=== PATIENT | female | born 1945 | race Caucasian/White ===

== ENCOUNTER → 2018-08-31 | Outpatient (CLI) | payer MEDICARE ==
--- NOTE | 2018-08-31 13:12 | RADIOLOGY REPORT (SQ) ---
EXAM DESCRIPTION: BARIUM SWALLOW ESOPHAGUS COMPLETED DATE/TIME: 08/31/2018 10:04 am REASON FOR STUDY: DYSPHAGIA R13.10 DYSPHAGIA, UNSPECIFIED COMPARISON: None. TECHNIQUE: Under fluoroscopic guidance, patient ingested effervescent granules followed by thick and thin barium. Fluoroscopic spot images and routine radiographic images acquired and stored on PACS. 12 MM BARIUM TABLET GIVEN: The patient swallowed a 12 mm barium tab which passed easily through the e sophagus and into the stomach without delay. LIMITATIONS: None. FLUOROSCOPY TIME: FLUORO TIME: 1.5 minutes 7 images saved to PACS. FINDINGS: NEUROMUSCULAR COORDINATION OF SWALLOW: Normal. No aspiration. ESOPHAGEAL MOTILITY: Normal peristalsis. No esophageal spasm. ESOPHAGEAL MUCOSA: Normal mucosa without masses or ulceration. GASTRO-ESOPHAGEAL JUNCTION: Small hiatal hernia present. Prominent gastroesophageal reflux, with bar ium refluxing to the level of the clavicles. NON-GI TRACT STRUCTURES: No significant finding. OTHER: No other significant finding. IMPRESSION: SMALL HIATAL HERNIA WITH PROMINENT GASTROESOPHAGEAL REFLUX. OTHERWISE UNREMARKABLE STUD Y. RECOMMENDATION: None COMMENT: NONE Quality ID [id number]: Final reports for procedures using fluoroscopy that document radiation exposure gayatri evan, or exposure time and number of fluorographic images (if radiation exposure indices are not avail able) TECHNICAL DOCUMENTATION: JOB ID: [id number] [employer]- All Rights Reserved Reading location - IP/workstation name: [email or web address]
== END ==
LOC: RAD 09:10
PROVIDERS: ATTEND Otolaryngology
DX: K21.9 Gastro-esophageal reflux disease without esophagitis (principal); K44.9 Diaphragmatic hernia without obstruction or gangrene; R13.10 Dysphagia, unspecified
CPT/HCPCS: 74220

== ENCOUNTER → 2019-08-27 | Day surgery (SDC) | payer MEDICARE ==
[~2019-08-27] MED LIST: LIDOCAINE 2% JELLY 5 ML TUBE ONE
== END ==
LOC: END 07:58
PROVIDERS: ATTEND Internal Medicine Pulmonary Disease
DX: R69 Illness, unspecified (principal)

== ENCOUNTER 2020-05-05 07:17 | Day surgery (SDC) | payer MEDICARE ==
[2020-04-30 12:53] LABS: HEMATOCRIT 36.4 % (36.0-47.0); HEMOGLOBIN 12.5 g/dL (12.0-15.5); MEAN CORPUSCULAR HEMOGLOBIN 30.8 pg (27.0-33.4); MEAN CORPUSCULAR HGB CONC 34.3 g/dL (32.0-36.0); MEAN CORPUSCULAR VOLUME 90 fl (80-97); PLATELET COUNT 226 10^3/uL (150-450); RED BLOOD COUNT 4.05 10^6/uL (3.72-5.28); RED CELL DISTRIBUTION WIDTH 12.9 % (11.5-14.0); WHITE BLOOD COUNT 6.4 10^3/uL (4.0-10.5)
[2020-04-30 13:19] LABS: ANION GAP 6 (5-19); BLOOD UREA NITROGEN 11 mg/dL (7-20); CALCIUM 9.2 mg/dL (8.4-10.2); CARBON DIOXIDE 28 mmol/L (22-30); CHLORIDE 102 mmol/L (98-107); GLUCOSE 104 mg/dL (75-110); POTASSIUM 3.8 mmol/L (3.6-5.0)
--- NOTE | 2020-04-30 19:35 | EKG REPORT ---
SEVERITY:- NORMAL ECG - SINUS RHYTHM : Confirmed by: Irina Pappas MD 30-Apr-2020 19:34:54
[~2020-05-05 07:17] MED LIST changes: +CEFAZOLIN 1 GM/D5W RTU 1 GM/50 ML RTUPB IV ONE; +CEFAZOLIN 2 GM/D5W RTU 2 GM/50 ML RTUPB IV PRN; +FENTANYL CITRATE INJ/PF 100 MCG/2 ML AMPUL ONE; +LACTATED RINGERS 1000 ML IV PRN; +LIDOCAINE 0.5% INJ-PF (5 MG/ML) 50 ML SDV SUBCUT PRN; -LIDOCAINE 2% JELLY 5 ML TUBE ONE; +MIDAZOLAM 2 MG/2 ML INJ ONE
[2020-05-05] MEDS ORDERED: HYDROMORPHONE HCL INJ/PF 2 MG/ML AMPULE ONE (07:18)
[2020-05-05] MEDS ORDERED: PROPOFOL INJ 200 MG/20 ML VIAL IV ONE (07:18)
[2020-05-05] MEDS ORDERED: METHYLENE BLUE 50 MG/10 ML AMPULE ONE (09:17)
[2020-05-05] MEDS ORDERED: MORPHINE SULFATE 10 MG/ML INJ IV PRN ×2 (10:08→11:15)
[2020-05-05] MEDS ORDERED: MEPERIDINE HCL/PF INJ 25 MG/1 ML DISP.SYRIN IV PRN (10:08)
[2020-05-05] MEDS ORDERED: DIPHENHYDRAMINE HCL 50 MG/ML VIAL IV PRN (10:08)
[2020-05-05] MEDS ORDERED: FENTANYL CITRATE INJ/PF 100 MCG/2 ML AMPUL IV PRN ×3 (10:08)
[2020-05-05] MEDS ORDERED: ONDANSETRON HCL INJ/PF 4 MG/2 ML SDV IV PRN ×2 (10:08→11:15)
[2020-05-05] MEDS ORDERED: BUPIVACAINE INJ/PF LIPOSOME/PF 266 MG/20 ML SDV ONE (10:11)
[2020-05-05] MEDS ORDERED: POTASSI CL 20 MEQ/D5-1/2NS 1L 1,000 ML IV PRN (11:15)
[2020-05-05] MEDS ORDERED: FENTANYL CITRATE INJ/PF 100 MCG/2 ML AMPUL ONE (11:26)
[2020-05-05] MEDS ORDERED: (PENDING PHARMACY ID) (Benzonatate [Benzonatate] 200 MG) PO PRN (11:42)
[2020-05-05] MEDS ORDERED: ALBUTEROL SULFATE HFA (90 MCG/PUFF) 8 GM MDI (1 MDI/ER DISP) IH PRN (11:42)
[2020-05-05] MEDS ORDERED: [UNRECOGNIZED DRUG - REMARK] PO PRN (11:42)
--- NOTE | 2020-05-05 12:49 | Operative Report ---
Nonrecallable Operative Report DATE OF SURGERY: 05/05/20 PREOPERATIVE DIAGNOSIS: gerd, hiatal hernia POSTOPERATIVE DIAGNOSIS: gerd, hiatal hernia OPERATION: laparoscopic eliu fundoplication SURGEON: JONELLE CRANE ANESTHESIA: GA TISSUE REMOVED OR ALTERED: none COMPLICATIONS: none ESTIMATED BLOOD LOSS: 25cc. INTRAOPERATIVE FINDINGS: hiatal hernia PROCEDURE: Patient brought the operating room awake alert in stable condition placed in the table supine position just under general anesthesia intubated. Abdomen is prepped draped usual sterile fashion for the procedure. After appropriate timeout site verification procedure commenced. Veress needle was placed into the umbilicus and the abdomen was insufflated 6 L of CO2 gas. Infraumbilical incision was made with a 15 blade and a 10 mm port placed in the abdominal cavity intra-abdominal visualization revealed no evidence of Veress needle or trocar injury. 2 epigastric 5 mm ports were placed under direct vision a right and left upper quadrant 5 mm port then placed under direct vision. The stomach was visualized. We divided the short gastric vessels and the gastrocolic ligament from the incisura to the angle of Hiss using the LigaSure device. Once the stomach was completely freed up we identified the hiatus and the left slip of the shannan. We then took down the gastrohepatic omentum with LigaSure device to identify the right shannan. We then mobilized the distal esophagus approximately 6 cm into the abdominal cavity with blunt and sharp dissection. We then closed the shannan around the posterior portion of the esophagus after a 56 Bahamian bougie dilator was placed into the mouth with it tip of it in the stomach. The shannan was closed posteriorly with 2 [id number] placed 0 Surgidac sutures. The the fundus of the stomach was then wrapped posteriorly around the esophagus and fixed to itself anteriorly and the esophagus with 2 stitches of 0 Surgidac placed around a 56 [place]ian bougie dilator. This created a floppy Eliu wrap. The bougie dilator was removed the integrity of this sutures were inspected and noted to be intact approximately 3 sutures were placed to create approximately a 2 cm long floppy Eliu wrap. At this point hemostasis was obtained we then remove the pneumoperitoneum remove the ports closed the fascial defects of 10 mm or greater with 0 Vicryl in the fascia and then closed all skin incisions with intracuticular 4-0 Maxon Steri- Strips completed the procedure. Estimated blood loss was less than 20 cc sponge and needle counts were correct x2. This point patient was awakened in the operating extubated transferred recovery stable condition. No complications. JOE Olmstead was present for the entire procedure for help with wound retraction wound closure.
[2020-05-05] MEDS ORDERED: ALBUTEROL SULFATE HFA (90 MCG/PUFF) 200 PUFF/8.5 GM MDI IH PRN (14:12)
[2020-05-05] MEDS ORDERED: DIPHENHYDRAMINE HCL 25 MG CAPSULE PO PRN (14:17)
[2020-05-05] MEDS ORDERED: BENZONATATE 100 MG CAPSULE PO PRN (14:17)
[2020-05-05] MEDS ORDERED: DEXAMETHASONE SOD PHOSPHATE INJ 4 MG/1 ML VIAL ONE (14:39)
[2020-05-05] MEDS ORDERED: GLYCOPYRROLATE 1 MG/5 ML VIAL ONE (14:39)
[2020-05-05] MEDS ORDERED: NEOSTIGMINE METHYLSULFATE 10 MG/10 ML VIAL ONE (14:39)
[2020-05-05] MEDS ORDERED: ONDANSETRON HCL INJ/PF 4 MG/2 ML SDV ONE (14:39)
[2020-05-05] MEDS ORDERED: PHENYLEPHRINE HCL INJ/PF 10 MG/1 ML SDV ONE (14:39)
[2020-05-05] MEDS ORDERED: ROCURONIUM BROMIDE INJ 50 MG/5 ML VIAL IV ONE (14:39)
[2020-05-05] MEDS ORDERED: FLUTICASONE FUROATE PO SCH (18:00)
[2020-05-05] MEDS: FAMOTIDINE INJ/PF 20 MG/2 ML SDV IV SCH (21:21)
[2020-05-06 06:39] LABS: ABSOLUTE LYMPHOCYTES (AUTO) 1.2 10^3/uL (0.5-4.7); ABSOLUTE MONOCYTES (AUTO) 0.8 10^3/uL (0.1-1.4); ABSOLUTE NEUT (AUTO) 6.7 10^3/uL (1.7-8.2); BASOPHILS % (AUTO) 0.5 % (0-2); HEMATOCRIT 34.9 % (36.0-47.0); HEMOGLOBIN 12.2 g/dL (12.0-15.5); LYMPHOCYTES % (AUTO) 13.6 % (13-45); MEAN CORPUSCULAR HEMOGLOBIN 31.5 pg (27.0-33.4); MEAN CORPUSCULAR VOLUME 90 fl (80-97); MONOCYTES % (AUTO) 9.2 % (3-13); PLATELET COUNT 220 10^3/uL (150-450); RED BLOOD COUNT 3.88 10^6/uL (3.72-5.28); RED CELL DISTRIBUTION WIDTH 13.1 % (11.5-14.0); SEGMENTED NEUTROPHILS % (AUTO) 76.7 % (42-78); TOTAL CELLS COUNTED % (AUTO) 100 %; WHITE BLOOD COUNT 8.8 10^3/uL (4.0-10.5)
[2020-05-06 07:02] LABS: ANION GAP 6 (5-19); BLOOD UREA NITROGEN 10 mg/dL (7-20); CARBON DIOXIDE 25 mmol/L (22-30); CHLORIDE 100 mmol/L (98-107); GLUCOSE 150 mg/dL (75-110); POTASSIUM 4.5 mmol/L (3.6-5.0)
--- NOTE | 2020-05-06 09:07 | PDOC DISCHARGE SUMMARY ---
General - Admit/Disc Date/PCP Admission Date/Primary Care Provider: MIKE BUSTILLO Discharge Date: 05/06/20 - Discharge Diagnosis Final Diagnosis: gerd - Assessment Summary: Patient was admitted on 05/05/2020 for an elective laparoscopic Eliu fundoplication for gastroesophageal reflux disease. Patient underwent the procedure without complications. Postoperative day 1 she was doing well tolerating liquids and ready for discharge home. - Additional Information Resuscitation Status: Full Code Discharge Diet: Full Liquids Discharge Activity: Activity As Tolerated, No Lifting Over 10 Pounds, Other - Okay to shower Referrals: DASH TRUJILLO FNP [Primary Care Provider] - Home Medications: Albuterol Sulfate [Albuterol Sulfate Hfa] 2 puff PO BID PRN 04/30/20 Benzonatate 200 mg PO TID PRN 04/30/20 Diphenhydramine HCl [Allergy Medicine] 1 tab PO DAILY PRN 04/30/20 Fluticasone Furoate [Arnuity Ellipta] 2 cap PO BID 04/30/20 Levothyroxine Sodium [Synthroid 0.05 mg Tablet] 1 tab PO DAILY 04/30/20 Omeprazole 20 mg PO DAILY 04/30/20 Sodium Chloride [Saline Nasal [place]] 1 spray NAREB DAILY 04/30/20 History of Present Illiness History of Present Illness: MICHELLE EARLY is a 74 year old female Physical Exam Vital Signs: Temp Pulse Resp BP Pulse Ox 98.0 F 64 16 158/71 H 96 05/06/20 07:53 05/06/20 07:53 05/06/20 07:53 05/06/20 07:53 05/06/20 07:53 Intake & Output 05/05/20 05/06/20 05/07/20 06:59 06:59 06:59 Intake Total 2850 Output Total 10 Balance 2840 Weight 58.51 kg Results Laboratory Results: WBC 8.8 10^3/uL (4.0-10.5) 05/06/20 05:59 RBC 3.88 10^6/uL (3.72-5.28) 05/06/20 05:59 Hgb 12.2 g/dL (12.0-15.5) 05/06/20 05:59 Hct 34.9 % (36.0-47.0) L 05/06/20 05:59 MCV 90 fl (80-97) 05/06/20 05:59 MCH 31.5 pg (27.0-33.4) 05/06/20 05:59 MCHC 35.0 g/dL (32.0-36.0) 05/06/20 05:59 RDW 13.1 % (11.5-14.0) 05/06/20 05:59 Plt Count 220 10^3/uL (150-450) 05/06/20 05:59 Lymph % (Auto) 13.6 % (13-45) 05/06/20 05:59 [place] % (Auto) 9.2 % (3-13) 05/06/20 05:59 Eos % (Auto) 0.0 % (0-6) 05/06/20 05:59 Baso % (Auto) 0.5 % (0-2) 05/06/20 05:59 Absolute Neuts (auto) 6.7 10^3/uL (1.7-8.2) 05/06/20 05:59 Absolute Lymphs (auto) 1.2 10^3/uL (0.5-4.7) 05/06/20 05:59 Absolute Monos (auto) 0.8 10^3/uL (0.1-1.4) 05/06/20 05:59 Absolute Eos (auto) 0.0 10^3/uL (0.0-0.6) 05/06/20 05:59 Absolute Basos (auto) 0.0 10^3/uL (0.0-0.2) 05/06/20 05:59 Seg Neutrophils % 76.7 % (42-78) 05/06/20 05:59 Sodium 130.7 mmol/L (137-145) L 05/06/20 05:59 Potassium 4.5 mmol/L (3.6-5.0) 05/06/20 05:59 Chloride 100 mmol/L (98-107) 05/06/20 05:59 Carbon Dioxide 25 mmol/L (22-30) 05/06/20 05:59 Anion Gap 6 (5-19) 05/06/20 05:59 BUN 10 mg/dL (7-20) 05/06/20 05:59 Creatinine 0.65 mg/dL (0.52-1.25) 05/06/20 05:59 Est GFR ( Amer) > 60 (>60) 05/06/20 05:59 Est GFR (MDRD) Non-Af > 60 (>60) 05/06/20 05:59 Glucose 150 mg/dL (75-110) H 05/06/20 05:59 Calcium 9.0 mg/dL (8.4-10.2) 05/06/20 05:59 COVID-19 Source NASOPHARYNGEAL 04/30/20 12:30 COVID-19 (SUMMER) NOT DETECTED 04/30/20 12:30
[2020-05-06] MEDS ORDERED: KETOROLAC TROMETHAMINE INJ/PF 30 MG/1 ML SDV IV ONE (09:30)
[2020-05-06] MEDS ORDERED: SODIUM CHLORIDE NASAL SPRAY 44 ML NAREB SCH (10:00)
[2020-05-06] MEDS ORDERED: LEVOTHYROXINE SODIUM 0.05 MG TABLET PO SCH (10:00)
[2020-05-06] MEDS: FAMOTIDINE INJ/PF 20 MG/2 ML SDV IV SCH (10:00)
[2020-05-06 10:58] VITALS: BP 177/69
== END 2020-05-06 11:43 | disposition home or self-care (01) ==
LOC: OROUT 07:17 → 4S 12:13 → OROUT 05-06 11:43
PROVIDERS: ATTEND Surgery
DX: K21.9 Gastro-esophageal reflux disease without esophagitis (principal); J45.909 Unspecified asthma, uncomplicated; E03.9 Hypothyroidism, unspecified; Z85.828 Personal history of other malignant neoplasm of skin; Z79.899 Other long term (current) drug therapy; Z03.818 Encounter for observation for suspected exposure to other biological agents ruled out
CPT/HCPCS: 93005; 36415 ×2; 85025; 85027; 80048 ×2; 94799; 93010; 43280; U0003; J2250; A9270 ×2; J0690; J3490 ×2; J1100; J3010; J1885; J2270; J2710; J1170; J2370; J3480; J2405; J2704; S0028 ×2; C9290; C9803; 790; 87635; Q9968

== ENCOUNTER 2020-05-19 06:29 | Day surgery (SDC) | payer MEDICARE ==
[~2020-05-19 06:29] MED LIST changes: +BUPIVACAINE HCL 0.75% INJ/PF (7.5 MG/1 ML) 10 ML SDV OS PRN; -CEFAZOLIN 1 GM/D5W RTU 1 GM/50 ML RTUPB IV ONE; -CEFAZOLIN 2 GM/D5W RTU 2 GM/50 ML RTUPB IV PRN; -FENTANYL CITRATE INJ/PF 100 MCG/2 ML AMPUL ONE; -LACTATED RINGERS 1000 ML IV PRN; -LIDOCAINE 0.5% INJ-PF (5 MG/ML) 50 ML SDV SUBCUT PRN; +LIDOCAINE 4% INJ/PF (40 MG/ML) 5 ML AMPUL OS PRN; -MIDAZOLAM 2 MG/2 ML INJ ONE
[2020-05-19] MEDS: TROPICAMIDE 1% OPH SOLN 15 ML OS PRN ×4 (06:50→07:15)
[2020-05-19] MEDS: KETOROLAC TROMETHAMINE 0.45% 4 DROP/0.4 ML DROPERETTE OS PRN ×2 (06:50→06:55)
[2020-05-19] MEDS: BESIFLOXACIN HCL 0.6% OPH SUSP 5 ML BOTTLE OS PRN ×5 (06:50→07:57)
[2020-05-19] MEDS: TETRACAINE HCL 0.5% OPH SOLN 4 ML OS PRN ×3 (06:50→07:15)
[2020-05-19] MEDS: CYCLOPENTOLATE 0.2%/PHENYLEPHRINE 1% OPH SOLN 2 ML OS PRN ×4 (06:50→07:15)
[2020-05-19] MEDS ORDERED: MIDAZOLAM 2 MG/2 ML INJ ONE (07:16)
[2020-05-19] MEDS: LIDOCAINE 1% INJ-PF (10 MG/ML) 30 ML SDV ONE ×2 (07:40→07:47)
[2020-05-19] MEDS: CHONDR SU A NA/HYALUR INTRAOC KIT (SURGICARE) ONE ×2 (07:41→07:47)
[2020-05-19] MEDS: EPINEPHRINE INJ/PF 1 MG/1 ML AMPULE ONE ×2 (07:41→07:47)
[2020-05-19] MEDS: DORZOLAMIDE HCL 2%/TIMOLOL MALEAT 0.5% OPH SOLN 10 ML OS PRN ×2 (07:57)
--- NOTE | 2020-05-19 09:31 | Operative Report ---
Operative Report-[facility] Operative Report: DATE OF SURGERY: 05/19/2020 PREOPERATIVE DIAGNOSIS: CATARACT, LEFT EYE. POSTOPERATIVE DIAGNOSIS: CATARACT, LEFT EYE. PROCEDURE PERFORMED: PHACOEMULSIFICATION WITH POSTERIOR CHAMBER INTRAOCULAR LENS, LEFT EYE. Intraocular Lens Model : SN 60 WF 24.0 Total Phaco Time: 7.25 CDE SURGEON: JOSE ROSENBERG MD ANESTHESIA: TOPICAL WITH MAC. INDICATIONS FOR SURGERY: Difficultly driving at night PROCEDURE: The patient was brought to the Operating Room and placed on the operative table. Following tetracaine drops, topical anesthesia was administered. This consisted of instrument wipe pledgets soaked in a solution of 4% Xylocaine mixed with 0.75% Marcaine in a 1:2 ratio. A 2 x 1 cm pledget was placed in the superior fornix. A 1 x 1 cm pledget was placed in the inferior fornix. The eye was patched shut for 5 minutes. The patch was removed. The eye was sterilely prepped and draped in the usual manner. Lid speculum was placed in the eye. The pledgets were removed. 4-0 black silk sutures were placed around the superior and the inferior rectus muscles to be used as traction. A conjunctival peritomy was made at the 10 o'clock position. Hemostasis was obtained with bipolar cautery. A posterior limbal groove was created using a crescent knife and dissected anteriorly towards the cornea. A sharp point blade was used to create a paracentesis site at the 2 o'clock position. 0.2 cc non preserved Lidocaine was injected into the anterior chamber. A 2.4 mm keratome was used to enter the anterior chamber through the groove. Viscoelastic was injected into the anterior chamber. An anterior capsulotomy was performed using Utrata forceps in a capsulorrhexis fashion. Hydrodissection and hydrodelineation were performed. Phacoemulsification was performed in [id number] technique. Following this, the I/A unit was used to remove residual cortex. Viscoelastic was injected into the capsular bag. The Intraocular lens was placed in the capsular bag. The I/A unit was used to remove residual viscoelastic. The wound was seen to be watertight under high and low pressure, and no sutures were placed. The intraocular lens was well centered. The pressure was adjusted in the eye to normal pressure. The 4-0 black silk sutures and lid speculum were removed. The eye was shielded after Besivance,prednisolone, and Cosopt drops were placed. The patient tolerated the procedure well and was sent to the Recovery Room in good condition.
== END 2020-05-19 08:30 | disposition home or self-care (01) ==
LOC: SC 06:29
PROVIDERS: ATTEND Ophthalmology
DX: H25.813 Combined forms of age-related cataract, bilateral (principal); E03.9 Hypothyroidism, unspecified; Z79.899 Other long term (current) drug therapy; J45.909 Unspecified asthma, uncomplicated
CPT/HCPCS: 66984; V2632; J2250; J3490 ×5; A9270; J0171

== ENCOUNTER 2020-06-30 06:37 | Day surgery (SDC) | payer MEDICARE ==
[~2020-06-30 06:37] MED LIST changes: +BUPIVACAINE HCL 0.75% INJ/PF (7.5 MG/1 ML) 10 ML SDV OD PRN; -BUPIVACAINE HCL 0.75% INJ/PF (7.5 MG/1 ML) 10 ML SDV OS PRN; +KETOROLAC TROMETHAMINE 0.45% 4 DROP/0.4 ML DROPERETTE OD PRN; +LIDOCAINE 4% INJ/PF (40 MG/ML) 5 ML AMPUL OD PRN; -LIDOCAINE 4% INJ/PF (40 MG/ML) 5 ML AMPUL OS PRN
[2020-06-30] MEDS ORDERED: FENTANYL CITRATE INJ/PF 100 MCG/2 ML AMPUL ONE (06:53)
[2020-06-30] MEDS ORDERED: MIDAZOLAM 2 MG/2 ML INJ ONE (06:53)
[2020-06-30] MEDS: TROPICAMIDE 1% OPH SOLN 15 ML OD PRN ×3 (06:55→07:20)
[2020-06-30] MEDS: CYCLOPENTOLATE 0.2%/PHENYLEPHRINE 1% OPH SOLN 2 ML OD PRN ×3 (06:55→07:20)
[2020-06-30] MEDS: BESIFLOXACIN HCL 0.6% OPH SUSP 5 ML BOTTLE OD PRN ×4 (06:55→07:50)
[2020-06-30] MEDS: TETRACAINE HCL 0.5% OPH SOLN 4 ML OD PRN ×2 (06:55→07:22)
[2020-06-30] MEDS: CHONDR SU A NA/HYALUR INTRAOC KIT (SURGICARE) ONE ×2 (07:36→07:38)
[2020-06-30] MEDS: LIDOCAINE 1% INJ-PF (10 MG/ML) 30 ML SDV ONE ×2 (07:36→07:38)
[2020-06-30] MEDS: EPINEPHRINE INJ/PF 1 MG/1 ML AMPULE ONE ×2 (07:36→07:38)
[2020-06-30] MEDS: DORZOLAMIDE HCL 2%/TIMOLOL MALEAT 0.5% OPH SOLN 10 ML OD PRN ×2 (07:50)
--- NOTE | 2020-06-30 14:06 | Operative Report ---
Operative Report-[facility] Operative Report: DATE OF SURGERY: 06/30/2020 PREOPERATIVE DIAGNOSIS: CATARACT, RIGHT EYE. POSTOPERATIVE DIAGNOSIS: CATARACT, RIGHT EYE. PROCEDURE PERFORMED: PHACOEMULSIFICATION WITH POSTERIOR CHAMBER INTRAOCULAR LENS, RIGHT EYE. Intraocular Lens Model : SN 60 WF 23.5 Total Phaco Time: 6.34 CDE SURGEON: JOSE ROSENBERG MD ANESTHESIA: TOPICAL WITH MAC. INDICATIONS FOR SURGERY: Difficulty reading small print and piano music. PROCEDURE: The patient was brought to the Operating Room and placed on the operative table. Following tetracaine drops, topical anesthesia was administered. This consisted of instrument wipe pledgets soaked in a solution of 4% Xylocaine mixed with 0.75% Marcaine in a 1:2 ratio. A 2 x 1 cm pledget was placed in the superior fornix. A 1 x 1 cm pledget was placed in the inferior fornix. The eye was patched shut for 5 minutes. The patch was removed. The eye was sterilely prepped and draped in the usual manner. Lid speculum was placed in the eye. The pledgets were removed. 4-0 black silk sutures were placed around the superior and the inferior rectus muscles to be used as traction. A conjunctival peritomy was made at the 10 o'clock position. Hemostasis was obtained with bipolar cautery. A posterior limbal groove was created using a crescent knife and dissected anteriorly towards the cornea. A sharp point blade was used to create a paracentesis site at the 2 o'clock position. 0.2 cc non preserved Lidocaine was injected into the anterior chamber. A 2.4 mm keratome was used to enter the anterior chamber through the groove. Viscoelastic was injected into the anterior chamber. An anterior capsulotomy was performed using Utrata forceps in a capsulorrhexis fashion. Hydrodissection and hydrodelineation were performed. Phacoemulsification was performed in [id number] technique. Following this, the I/A unit was used to remove residual cortex. Viscoelastic was injected into the capsular bag. The Intraocular lens was placed in the capsular bag. The I/A unit was used to remove residual viscoelastic. The wound was seen to be watertight under high and low pressure, and no sutures were placed. The intraocular lens was well centered. The pressure was adjusted in the eye to normal pressure. The 4-0 black silk sutures and lid speculum were removed. The eye was shielded after Besivance. prednisolone, and Cosopt drops were placed. The patient tolerated the procedure well and was sent to the Recovery Room in good condition.
== END 2020-06-30 08:30 | disposition home or self-care (01) ==
LOC: SC 06:37
PROVIDERS: ATTEND Ophthalmology
DX: H25.811 Combined forms of age-related cataract, right eye (principal); Z96.1 Presence of intraocular lens; H40.033 Anatomical narrow angle, bilateral; E03.9 Hypothyroidism, unspecified; K44.9 Diaphragmatic hernia without obstruction or gangrene; Z79.899 Other long term (current) drug therapy; Z85.828 Personal history of other malignant neoplasm of skin
CPT/HCPCS: 66984; V2632; J2250; J3490 ×5; A9270; J0171; J3010; 142